=== PATIENT | female | born 1975 | race American Indian/Alaskan Native ===

== ENCOUNTER 2016-07-20 11:42 | Emergency (ER) | payer SELFPAY ==
--- NOTE | 2016-07-20 12:39 | Emergency Department Report ---
Chief Complaint: Abdominal Pain Stated Complaint: ABD PAIN/VOMITING Time Seen by Provider: 07/20/16 12:35 - HPI History of Present Illness: 41 y/o female complain of abdominal pain x2 weeks .pt state that she was taken oxycodone since 06/25/2017 - ROS Review of Systems: per HPI - Exam Vital Signs: Vital Signs 07/20/16 11:51 Temperature 98.2 F Pulse Rate 69 Respiratory 28 H Rate Blood Pressure 134/86 O2 Sat by Pulse 28 L Oximetry Physical Exam: GENERAL: The patient is well-developed and well-nourished. Patient is in NAD. HENT: Normocephalic. Atraumatic. Patient has moist mucous membranes. Throat: No erythema, swelling or exudates. EYES: Extraocular motions are intact, PERRL NECK: Supple. No meningitic signs are noted. There is no adenopathy noted. CHEST/LUNGS: Clear to auscultation bilaterally. No wheezing, rales or rhonchi noted. There is no respiratory distress noted. HEART/CARDIOVASCULAR: Regular rate and rhythm. Normal S1 S2. No murmurs, rubs , clicks, or gallops. ABDOMEN: Abdomen is soft, nontender.. Bowel sounds normoactive. There is no abdominal distention. Negative rebound tenderness : Deferred. SKIN: There is no rash. There is no edema. There is no diaphoresis. NEURO: The patient is A&Ox3. The patient has no focal neurologic deficits. MUSCULOSKELETAL: There is no tenderness or deformity. There is no limitation range of motion. PSYCH: Pt has appropriate mood and affect. MSE screening note: Focused history and physical exam performed. Due to findings the following was ordered: ED Disposition for MSE Condition: Stable Instructions: Abdominal Pain (ED)
[2016-07-20 12:58] LABS: Basophils % (Auto) 0.5 % (0.0-1.8); Eosinophils % (Auto) 1.9 % (0.0-4.3); Hematocrit 33.7 % (30.3-42.9); Mean Corpuscular HGB Conc 33 % (30-34); Mean Corpuscular Hemoglobin 27 pg (28-32); Mean Corpuscular Volume 84 fl (79-97); Platelet Count 367 K/mm3 (140-440); Red Cell Distribution Width 15.4 % (13.2-15.2); White Blood Count 5.8 K/mm3 (4.5-11.0)
[2016-07-20 13:11] LABS: Anion Gap 19 mmol/L; BUN/Creatinine Ratio 16.66; Blood Urea Nitrogen 10 mg/dL (7-17); Calcium 9.1 mg/dL (8.4-10.2); Carbon Dioxide 25 mmol/L (22-30); Chloride 103.1 mmol/L (98-107); Glucose 101 mg/dL (65-100); Potassium 3.2 mmol/L (3.6-5.0); Sodium 144 mmol/L (137-145)
[2016-07-20 15:25] LABS: Bilirubin,Urine NEG (Negative); Blood,Urine NEG (Negative); Ketones,Urine TR mg/dL (Negative); Leukocyte Esterase,Urine TR (Negative); Mucus,Urine 2+ /HPF; Nitrite,Urine NEG (Negative); Protein,Urine <15 mg/dL mg/dL (Negative); Urobilinogen,Urine < 2.0 mg/dL (<2.0)
[2016-07-20] MEDS ORDERED: MORPHINE IM ONE (23:46)
[2016-07-20] MEDS ORDERED: ZOFRAN IM ONE (23:46)
--- NOTE | 2016-07-20 23:54 | Emergency Department Report ---
HPI - General Chief Complaint: Abdominal Pain Time Seen by Provider: 07/20/16 23:30 - HPI HPI: Room 24 The patient is a 41-year-old female presenting to chief complaint lower abdominal pain. The patient was seen in the emergency department 06/25/2016 for cramping lower abdominal pain. During her pelvic exam she is noted to have an abnormal-appearing cervix. The cervix also. Abnormal CT abdomen was performed at that time. The patient was given referrals to [facility] and strongly advised to follow-up for cervical biopsy. Patient states she went to see the OB [facility] ([facility]) 07/10/2016; however, the patient was found to be hypertensive at that time so the procedure was not performed patient was started on amlodipine. The patient states she was scheduled to follow back up with the [facility] yesterday however the office was closed secondary to inclement weather. The patient states her next appointment is scheduled for 08/02/2016 however she may attempt to follow up with a different [facility] to see if she can get a sooner appointment. The patient states she ran out of her pain medication several weeks ago and it was only thing that was helping to ease the constant pain. The patient states there have been no new symptoms just a constant pain since she ran out of her pain medication. Patient denies any history of fever Location: Lower abdomen Duration: [see above] Quality: Cramping Severity: 03/23 Modifying factors: [see above] Context: [see above] Mode of transportation: [not driving] ED Past Medical Hx - Past Medical History Previous Medical History?: Yes Additional medical history: abd pain, cervical dysplasia - Surgical History Past Surgical History?: Yes Additional Surgical History: umbilical hernia repair - Family History Family history: no significant - Social History Smoking Status: Current Every Day Smoker (1/3 pack per day) Substance Use Type: None (denies illicit drug use), Non Opiate Pain, Prescribed - Medications Home Medications: Home Medications Medication Instructions Recorded Confirmed Last Taken Type Ketorolac [Toradol] 10 mg PO Q6H PRN #20 tablet 06/25/16 Unknown Rx oxyCODONE [Roxicodone] 5 mg PO Q6HR PRN #15 tablet 06/25/16 Unknown Rx Ibuprofen [Motrin 800 MG tab] 800 mg PO Q8HR PRN #20 tablet 07/20/16 Unknown Rx oxyCODONE /ACETAMINOPHEN [Percocet 1 - 2 tab PO Q6HR PRN #20 tablet 07/20/16 Unknown Rx 5/325] ED Review of Systems ROS: Stated complaint: ABD PAIN/VOMITING Other details as noted in HPI Comment: All other systems reviewed and negative Constitutional: denies: chills, fever Eyes: denies: eye pain, eye discharge, vision change ENT: denies: ear pain, throat pain Respiratory: denies: cough, shortness of breath, wheezing Cardiovascular: denies: chest pain, palpitations Endocrine: no symptoms reported Gastrointestinal: abdominal pain Genitourinary: abnormal menses Musculoskeletal: denies: back pain, joint swelling, arthralgia Skin: denies: rash, lesions Neurological: denies: headache, weakness, paresthesias Psychiatric: denies: anxiety, depression Hematological/Lymphatic: denies: easy bleeding, easy bruising Physical Exam - Physical Exam Vital Signs: Vital Signs 07/20/16 07/20/16 07/20/16 11:51 17:40 20:21 Temperature 98.2 F 98.1 F 97.3 F L Pulse Rate 69 81 68 Respiratory 28 H 20 18 Rate Blood Pressure 134/86 150/103 147/102 O2 Sat by Pulse 100 100 100 Oximetry Physical Exam: GENERAL: The patient is well-developed well-nourished female lying on stretcher appearing to be in mild discomfort. [] HEENT: Normocephalic. Atraumatic. Extraocular motions are intact. Patient has moist mucous membranes. NECK: Supple. Trachea midline CHEST/LUNGS: Clear to auscultation. There is no respiratory distress noted. HEART/CARDIOVASCULAR: Regular. There is no tachycardia. There is no gallop rub or murmur. ABDOMEN: Abdomen is soft, with mild discomfort lower abdomen. There is no rebound or guarding. Patient has normal bowel sounds. There is no abdominal distention. SKIN: There is no rash. There is no edema. There is no diaphoresis. NEURO: The patient is awake, alert, and oriented. The patient is cooperative. The patient has normal speech MUSCULOSKELETAL: There is no evidence of acute injury. ED Course Vital Signs 07/20/16 07/20/16 07/20/16 11:51 17:40 20:21 Temperature 98.2 F 98.1 F 97.3 F L Pulse Rate 69 81 68 Respiratory 28 H 20 18 Rate Blood Pressure 134/86 150/103 147/102 O2 Sat by Pulse 100 100 100 Oximetry ED Medical Decision Making - Lab Data Result diagrams: 07/20/16 12:49 07/20/16 12:49 Laboratory Tests 07/20/16 07/20/16 07/20/16 12:47 12:49 12:49 WBC 5.8 RBC 4.00 Hgb 11.0 Hct 33.7 MCV 84 MCH 27 L MCHC 33 RDW 15.4 H Plt Count 367 Lymph % (Auto) 37.9 H [place] % (Auto) 7.6 H Eos % (Auto) 1.9 Baso % (Auto) 0.5 Lymph # 2.2 [place] # 0.4 Eos # 0.1 Baso # 0.0 Seg Neutrophils % 52.1 Seg Neutrophils # 3.0 Sodium 144 Potassium 3.2 L Chloride 103.1 Carbon Dioxide 25 Anion Gap 19 BUN 10 Creatinine 0.6 L Estimated GFR > 60 BUN/Creatinine Ratio 16.66 Glucose 101 H Calcium 9.1 HCG, Qual Negative Urine Color Urine Turbidity Urine pH Ur Specific [place] Urine Protein Urine Glucose (UA) Urine Ketones Urine Blood Urine Nitrite Urine Bilirubin Urine Urobilinogen Ur Leukocyte Esterase Urine WBC (Auto) Urine RBC (Auto) U Epithel Cells (Auto) Urine Mucus 07/20/16 14:34 WBC RBC Hgb Hct MCV MCH MCHC RDW Plt Count Lymph % (Auto) [place] % (Auto) Eos % (Auto) Baso % (Auto) Lymph # [place] # Eos # Baso # Seg Neutrophils % Seg Neutrophils # Sodium Potassium Chloride Carbon Dioxide Anion Gap BUN Creatinine Estimated GFR BUN/Creatinine Ratio Glucose Calcium HCG, Qual Urine Color [place] Urine Turbidity Clear Urine pH 6.0 Ur Specific [place] 1.017 Urine Protein <15 mg/dl Urine Glucose (UA) Neg Urine Ketones Tr Urine Blood Neg Urine Nitrite Neg Urine Bilirubin Neg Urine Urobilinogen < 2.0 Ur Leukocyte Esterase Tr Urine WBC (Auto) 4.0 Urine RBC (Auto) 2.0 U Epithel Cells (Auto) 2.0 Urine Mucus 2+ - Differential Diagnosis cervical CA, menorrhagia Critical care attestation.: If time is entered above; I have spent that time in minutes in the direct care of this critically ill patient, excluding procedure time. ED Disposition Clinical Impression: Abnormal cervix finding, Lower abdominal pain, Menorrhagia Disposition: DISCHARGED TO HOME OR SELFCARE Is pt being admited?: No Does the pt Need Aspirin: No Condition: Stable Instructions: Abdominal Pain (ED), Pap Smear (ED) Additional Instructions: Return to the emergency department immediately should you develop worsening symptoms, fever, inability to tolerate food or liquid or any other concerns. Prescriptions: Ibuprofen [Motrin 800 MG tab] 800 mg PO Q8HR PRN #20 tablet PRN Reason: Pain oxyCODONE /ACETAMINOPHEN [Percocet 5/325] 1 - 2 tab PO Q6HR PRN #20 tablet PRN Reason: Pain Referrals: PRIMARY CARE, [Primary Care Provider] - 3-5 Days your, [facility] [Other] - ZACK URIAS MD [Staff Physician] - LORETO HERR MD [Staff Physician] - DERECK BAI MD [Staff Physician] - KERRIE Time of Disposition: 23:59
[2016-07-21 00:40] VITALS: BP 140/86
== END 2016-07-21 00:42 | disposition home or self-care (01) ==
LOC: ED 11:42
DX: N92.0 Excessive and frequent menstruation with regular cycle (principal); R87.619 Unspecified abnormal cytological findings in specimens from cervix uteri; F17.200 Nicotine dependence, unspecified, uncomplicated
CPT/HCPCS: 36415; 80048; 81001; 84703; 85025; 96372; 99283; J2270; J2405

== ENCOUNTER 2016-08-12 13:13 | Emergency (ER) | payer SELFPAY ==
[2016-08-12 14:12] VITALS: BP 131/92
== END 2016-08-12 21:57 | disposition left against medical advice (07) ==
LOC: ED 13:13
DX: G89.3 Neoplasm related pain (acute) (chronic) (principal); Z53.21 Procedure and treatment not carried out due to patient leaving prior to being seen by health care provider

== ENCOUNTER 2018-03-04 12:00 | Day surgery (SDC) | payer MEDICAID ==
[2018-03-04] MEDS ORDERED: ANCEF/STERILE WATER 2 GM/20 ML 2 GM/20 ML SYRINGE IV NR (13:00)
[2018-03-04] MEDS ORDERED: LACTATED RINGERS 1,000 ML IV SCH ×2 (13:16→14:00)
[2018-03-04] MEDS ORDERED: DILAUDID IV PRN (13:46)
[2018-03-04] MEDS ORDERED: DEMEROL IV PRN (13:46)
[2018-03-04] MEDS ORDERED: TORADOL IV PRN (13:46)
[2018-03-04] MEDS ORDERED: ZOFRAN IV PRN (13:46)
--- NOTE | 2018-03-04 13:47 | Anesthesia Day of Surgery ---
Anesthesia Day of Surgery - Day of Surgery Patient Examined: Yes Patient H&P Reviewed: Yes Patient is NPO: Yes
--- NOTE | 2018-03-04 13:48 | Anesthesia Consultation ---
Anesthesia Consult and Med Hx Date of service: 03/04/18 - Airway Anesthetic Teeth Evaluation: Good ROM Head & Neck: Adequate Mental/Hyoid Distance: Adequate Mallampati Class: Class I Intubation Access Assessment: Good - Pulmonary Exam CTA: Yes - Cardiac Exam Cardiac Exam: RRR - Pre-Operative Health Status ASA Pre-Surgery Classification: ASA2 Proposed Anesthetic Plan: General (GA with LMA, pt has hx of tob use) - Pulmonary Hx Asthma: No Hx Pneumonia: No - Cardiovascular System Hx Hypertension: Yes - Other Systems Hx Alcohol Use: No Hx Cancer: Yes
[2018-03-04] MEDS ORDERED: XYLOCAINE MPF 2% ONE (13:54)
[2018-03-04] MEDS ORDERED: SUBLIMAZE ONE ×2 (13:55→15:09)
[2018-03-04] MEDS ORDERED: DIPRIVAN 10 MG/ML IV ONE (13:55)
[2018-03-04] MEDS ORDERED: VERSED IV NR (14:00)
[2018-03-04 14:03] LABS: Hematocrit 30.2 % (30.3-42.9); Hemoglobin 9.8 gm/dl (10.1-14.3); Mean Corpuscular HGB Conc 32 % (30-34); Mean Corpuscular Hemoglobin 29 pg (28-32); Mean Corpuscular Volume 89 fl (79-97); Platelet Count 302 K/mm3 (140-440); Red Blood Count 3.39 M/mm3 (3.65-5.03); Red Cell Distribution Width 16.6 % (13.2-15.2)
[2018-03-04] MEDS ORDERED: WATER FOR IRRIG STERILE IR ONE ×2 (14:24→14:25)
[2018-03-04] MEDS ORDERED: OMNIPAQUE (300 MG) IV ONE (14:24)
[2018-03-04] MEDS ORDERED: ZOFRAN ONE (14:28)
[2018-03-04] MEDS ORDERED: DECADRON ONE (14:28)
[2018-03-04 14:58] LABS: Total Cells Counted 100
[2018-03-04 14:59] LABS: Basophils % (Manual) 0 % (0.0-1.8)
[2018-03-04 15:00] LABS: Anisocytosis 1+
[2018-03-04 15:02] LABS: Platelet Estimate Cons
--- NOTE | 2018-03-04 15:04 | Post Operative Note ---
Date of procedure: 03/04/18 Pre-op diagnosis: hematuria Post-op diagnosis: same Findings: diffuse patches bleeding Procedure: cysto fulg bx rpgs Anesthesia: GETA Surgeon: ABHI ESTES Estimated blood loss: minimal Pathology: list (bladder) Specimen disposition: to lab Condition: stable Disposition: PACU
--- NOTE | 2018-03-04 15:05 | Discharge Summary ---
Short Stay Discharge Plan Activity: other (no straining ) Weight Bearing Status: Full Weight Bearing Diet: regular Special Instructions: other (white care ) Durable Medical Equipment Needed Upon Discharge: other (home with white ) Follow up with: JAVIER STEVENS MD [Primary Care Provider] - 7 Days ABHI ESTES MD [Staff Physician] - 7 Days
[2018-03-04] MEDS ORDERED: APRESOLINE ONE (15:26)
[2018-03-04] MEDS ORDERED: BENADRYL ONE (15:49)
--- NOTE | 2018-03-04 16:47 | Operative Report ---
PREOPERATIVE DIAGNOSIS: Severe gross hematuria with clots. POSTOPERATIVE DIAGNOSES: Evidence of severe radiation cystitis, post-radiation for cervical cancer. PROCEDURE: Cystoscopy, fulguration biopsies, and retrograde cystogram. SURGEON: Kyle Ellis MD ANESTHESIA: General. FINDINGS: This is a woman, who presented with gross hematuria. Her urine was very thick, could not see through it today. She has been bleeding on and off for about a month, but it was severe today, now presents for cystoscopy. DESCRIPTION OF PROCEDURE: The patient was brought to the operating room and placed on the operating table. Following induction of anesthesia, placed in lithotomy position, prepped and draped in usual sterile fashion. The vaginal area was all scarred and narrowed from previous surgery and radiation. At this point, cystoscopy showed severe bladder, filled with blood and some clots. These were evacuated out. The trigone was spared. Retrograde showed delicate system, good drainage bilaterally. Most of the lesions were posteriorly and towards the dome and anterior, which were oozing, especially anteriorly, there was clearly a blood vessel that was just bleeding. This was cauterized. The surrounding area was cauterized. The area was biopsied as well. Erythematous patches, which were bleeding. The patient tolerated the procedure well. Cystogram want to make sure there was no perforation just from instilling fluid in this very small capacity bladder and there was no extravasation. The patient tolerated the procedure well. The Mccoy three-way was left, will give her some irrigation. If we need to admit her, we will use some alum, but at this point, hopefully, she can go home with a catheter. She was brought to recovery room with a 24 three-way in stable condition. JOB# [id number] VALARIE/KANDIS
--- NOTE | 2018-03-04 16:54 | Post Anesthesia Evaluation ---
- Post Anesthesia Evaluation Patient Participated: Yes Airway Patent: Yes Stable Respiratory Function: Yes Nausea/Vomiting: No Temp > 96.8F: Yes Pain Manageable: Yes Adequeate Hydration: Yes Anesthesia Complications: No
[2018-03-04 17:37] VITALS: BP 153/88
--- NOTE | 2018-03-05 07:50 | Fluoroscopy Report ---
FLUOROSCOPY RETROGRADE UROGRAPHY: HISTORY: Hematuria. FINDINGS: Fluoroscopy was provided by radiology during retrograde urography by the urologist. 8 fluoroscopic images were captured. There is adequate filling of the ureters and intrarenal collecting systems with no filling defects or anatomic abnormalities identified. AP view of the bladder was obtained containing a Mccoy catheter and contrast. No bladder abnormality is detected on this limited view. Fulguration of bladder was performed per the procedural notes. Please correlate with the procedural report if needed. IMPRESSION: Retrograde pyelograms and bladder within normal limits.
== END 2018-03-04 18:15 | disposition home or self-care (01) ==
LOC: OR 12:00
PROVIDERS: ATTEND Urology
DX: N30.21 Other chronic cystitis with hematuria (principal); N30.01 Acute cystitis with hematuria; I10 Essential (primary) hypertension; F17.200 Nicotine dependence, unspecified, uncomplicated; Z79.899 Other long term (current) drug therapy; Z85.41 Personal history of malignant neoplasm of cervix uteri; Z98.890 Other specified postprocedural states; Z80.8 Family history of malignant neoplasm of other organs or systems
CPT/HCPCS: 36415; 52214; 74420; 74430; 85007; 85025; 88112; 88305; A4217; C1758; C1769; J0360; J0690; J1100; J1170; J1200; J2250; J2405; J2704; J3010; J7120; Q9967

== ENCOUNTER 2018-04-16 09:32 | Outpatient (CLI) | payer MEDICAID ==
--- NOTE | 2018-04-16 12:05 | XRay Report ---
ROUTINE CHEST, TWO VIEWS: HISTORY: Malignant neoplasm, irradiation cystitis with hematuria. The trachea, heart, mediastinal contour, lung talavera and bony thorax are unremarkable. IMPRESSION: Unremarkable chest x-ray.
== END 2018-04-16 09:33 | disposition home or self-care (01) ==
LOC: WOUND 09:32
PROVIDERS: ATTEND Surgery
DX: C53.8 Malignant neoplasm of overlapping sites of cervix uteri (principal); N30.41 Irradiation cystitis with hematuria; I10 Essential (primary) hypertension; F17.200 Nicotine dependence, unspecified, uncomplicated
CPT/HCPCS: 71046; G0463; 99204

== ENCOUNTER 2020-08-02 13:10 | Day surgery (SDC) | payer MEDICAID ==
[~2020-08-02 13:10] MED LIST: LACTATED RINGERS 1,000 ML IV SCH; MIDAZOLAM 2 MG/2 ML INJ IV NR
--- NOTE | 2020-08-02 14:09 | Anesthesia Day of Surgery ---
Anesthesia Day of Surgery - Day of Surgery Patient Examined: Yes Patient H&P Reviewed: Yes Patient is NPO: Yes
--- NOTE | 2020-08-02 14:09 | Anesthesia Consultation ---
Anesthesia Consult and Med Hx Date of service: 08/02/20 - Airway Anesthetic Teeth Evaluation: Good ROM Head & Neck: Adequate Mental/Hyoid Distance: Adequate Mallampati Class: Class II Intubation Access Assessment: Good - Pulmonary Exam CTA: Yes - Cardiac Exam Cardiac Exam: RRR - Pre-Operative Health Status ASA Pre-Surgery Classification: ASA2 Proposed Anesthetic Plan: General - Pulmonary Hx Smoking: Yes (X25 YEARS) Hx Asthma: No Hx Pneumonia: No - Cardiovascular System Hx Hypertension: Yes - Hematic Hx Anemia: Yes - Other Systems Hx Alcohol Use: No Hx Cancer: Yes
[2020-08-02] MEDS ORDERED: propofoL 200 MG/20 ML VIAL IV ONE (14:31)
--- NOTE | 2020-08-02 14:35 | Post Operative Note ---
Date of procedure: 08/02/20 Pre-op diagnosis: hematuria Post-op diagnosis: same Findings: post xrt Procedure: cysto bx rpgs vag bx Anesthesia: GETA Surgeon: ABHI ESTES Estimated blood loss: none Pathology: list (bladder) Specimen disposition: to lab Condition: stable Disposition: PACU
--- NOTE | 2020-08-02 14:36 | Discharge Summary ---
Short Stay Discharge Plan Activity: other (no straining ) Weight Bearing Status: Full Weight Bearing Diet: low fat, low cholesterol, low salt Special Instructions: other (inc fluids ) Durable Medical Equipment Needed Upon Discharge: other (white ) Follow up with: [facility], [Primary Care Provider] - 7 Days ABHI ESTES MD [Staff Physician] - 7 Days
[2020-08-02] MEDS ORDERED: KETOROLAC 30 MG/1 ML INJ ONE (14:48)
[2020-08-02] MEDS ORDERED: dexAMETHasone 20 MG/5 ML VIAL ONE (14:48)
[2020-08-02] MEDS ORDERED: HYDROmorphone 1 MG/1 ML INJ ONE (14:48)
[2020-08-02] MEDS ORDERED: ONDANSETRON 4 MG/2 ML INJ ONE (14:48)
[2020-08-02] MEDS ORDERED: fentaNYL 100 MCG/2 ML INJ IV PRN (15:03)
[2020-08-02] MEDS ORDERED: WATER FOR IRRIG STERILE 2000 ML IR ONE (15:20)
[2020-08-02] MEDS ORDERED: ALBUTEROL 2.5 MG/3 ML NEBU IH PRN (15:28)
--- NOTE | 2020-08-02 15:32 | Operative Report ---
PREOPERATIVE DIAGNOSIS: Hematuria. POSTOPERATIVE DIAGNOSIS: Anterior vaginal wall mass with necrosis and foul smelling tissue. PROCEDURES: Cystoscopy, retrograde biopsies, bladder biopsies and periurethral biopsy, anterior vaginal wall biopsy. SURGEON: Dr. Ellis. ANESTHESIA: General. FINDINGS: This is a woman who had cervical cancer with afterloading devices. She presents with blood in the urine. She is not sure exactly if it in the urine or around the urethra. A mass was palpable and she now presents for treatment. DESCRIPTION OF PROCEDURE: The patient was brought to the operating room and placed on the operating table. Following the induction of anesthesia, placed in lithotomy position, prepped and draped in usual sterile fashion. This mass was in anterior vaginal wall and very foul odor, was white and necrotic. Cystoscopy showed no intraurethral masses, but there were lots of inflammatory changes in the bladder. Biopsy was obtained. Bladder was small in capacity. Orifices were small, but retrograde showed minimal dilatation with good drainage. Biopsy was obtained, area cauterized and the anterior vaginal wall necrosis was debrided and given to pathology and using a Stefan-Cut automatic, this was biopsied as well. The patient tolerated the procedure well. A small vaginal pack was left. We will take that out tomorrow with the catheter. The patient brought to recovery in stable condition. JOB# [id number] VALARIE/KANDIS
[2020-08-02] MEDS ORDERED: SODIUM CHLORIDE FOR INHALATION NEBU 3 ML ONE (15:39)
[2020-08-02] MEDS ORDERED: SODIUM CHLORIDE FOR INHALATION NEBU 3 ML IH PRN (15:45)
[2020-08-02 16:34] VITALS: BP 162/104
--- NOTE | 2020-08-02 17:12 | Fluoroscopy Report ---
INTRAOPERATIVE FLUOROSCOPY: RETROGRADE PYELOGRAPHY INDICATION: HEMATURIA. TECHNIQUE: Intraoperative spot images were obtained during the procedure. FINDINGS: Calyces appear sharp. No significant hydronephrosis. Please see procedure note for details. Fluoroscopy Time: 16 seconds. Fluoroscopy Images: 9. Signer Name: Jean Paul Urena MD Signed: 08/02/2020 5:08 PM Workstation Name: [id number]
== END 2020-08-02 13:11 | disposition home or self-care (01) ==
LOC: OR 13:10
PROVIDERS: ATTEND Urology
DX: R31.0 Gross hematuria (principal); I10 Essential (primary) hypertension; N89.8 Other specified noninflammatory disorders of vagina; N32.89 Other specified disorders of bladder; F17.210 Nicotine dependence, cigarettes, uncomplicated; D64.9 Anemia, unspecified; Z85.41 Personal history of malignant neoplasm of cervix uteri; Z80.8 Family history of malignant neoplasm of other organs or systems
CPT/HCPCS: 52204; 57100; 74420; 88305; 88312; A4217; C1758; J1100; J1170; J1885; J2250; J2405; J2704; J7120; Q9967; 36415; 80053; 84703; 85025

== ENCOUNTER 2020-08-03 18:20 | Emergency (ER) | payer MEDICAID ==
[2020-08-03 18:25] VITALS: BP 170/106
--- NOTE | 2020-08-03 18:37 | Emergency Department Report ---
Blank Doc - Documentation Documentation: This is a 45-year-old female that presents with surgical site pain and packing pain. Patient had a procedure yesterday for urology conditions. patient is requesting for surgical site packing to be removed. 1- This initial assessment/diagnostic orders/clinical plan/ treatment(s) is/are subject to change based on pt's health status, clinical progression and re- assessment by fellow clinical providers in the ED. Further treatment and workup at subsequent clinical provers discretion. Patient/guardians urged not to elope from ED as their condition may be serious if not clinically assessed and managed. 2-labs 3-UA
[2020-08-03 18:55] LABS: Basophils # (Auto) 0.1 K/mm3 (0.0-0.1); Basophils % (Auto) 0.7 % (0.0-1.8); Eosinophils % (Auto) 0.6 % (0.0-4.3); Hematocrit 41.6 % (30.3-42.9); Hemoglobin 14.3 gm/dl (10.1-14.3); Lymphocytes # (Auto) 2.3 K/mm3 (1.2-5.4); Lymphocytes % (Auto) 28.7 % (13.4-35.0); Mean Corpuscular HGB Conc 34 % (30-34); Mean Corpuscular Volume 86 fl (79-97); Monocytes # (Auto) 0.7 K/mm3 (0.0-0.8); Monocytes % (Auto) 8.7 % (0.0-7.3); Platelet Count 337 K/mm3 (140-440); Red Blood Count 4.83 M/mm3 (3.65-5.03); Red Cell Distribution Width 14.5 % (13.2-15.2)
[2020-08-03 19:16] LABS: Alanine Aminotransferase 28 units/L (7-56); Blood Urea Nitrogen 17 mg/dL (7-17); Calcium 9.3 mg/dL (8.4-10.2); Hemolysis Index 8
[2020-08-03 19:26] LABS: BUN/Creatinine Ratio 24
== END 2020-08-04 00:45 | disposition left against medical advice (07) ==
LOC: ED 18:20
DX: Z48.01 Encounter for change or removal of surgical wound dressing (principal); Z53.21 Procedure and treatment not carried out due to patient leaving prior to being seen by health care provider
CPT/HCPCS: 36415; 80053; 84703; 85025